=== PATIENT | female | born 1970 | race Caucasian/White ===

== ENCOUNTER → 2017-05-20 | Outpatient (CLI) | payer SELFPAY | END | disposition home or self-care (01) | LOC: LAB.O 11:30 | PROVIDERS: ATTEND Nurse Practitioner Family | DX: E03.9 Hypothyroidism, unspecified (principal) ==

== ENCOUNTER 2017-09-27 12:47 | Emergency (ER) | payer SELFPAY | END 2017-09-27 14:00 | disposition left against medical advice (07) | LOC: ER 12:47 | DX: Z53.21 Procedure and treatment not carried out due to patient leaving prior to being seen by health care provider (principal) ==

== ENCOUNTER 2018-05-21 15:35 | Emergency (ER) | payer SELFPAY ==
--- NOTE | 2018-05-21 16:15 | ED.PDOC ---
History of Present Illness - General Chief Complaint: GI Problem Stated Complaint: Abdominal cramping, blood in stool Time Seen by Provider: 05/21/18 16:12 Information Source: patient Exam Limitations: no limitations - History of Present Illness Initial Comments: Louise Patel 47 y/o female stated that she had blood tinged stool with abdominal cramps since yesterday and with diarrhea and mucus in stool. Stated abdominal cramps getting better.Had been diagnosed with celiac disease by in 2009 when she had same symptoms and had it again in 2013 and today.Stated she was prescribed antibiotics when she has this symptoms.Had EGD done but for peptic acid symptoms in the past no colonoscopy. Abdominal Pain Onset Location: suprapubic Pain Radiation: no radiation Quality: cramping, intermittent Timing/Duration: 7-24 hours, days - 2, gone now Worsening Factors: nothing Associated Symptoms: other - see hpi Review of Systems - Review of Systems Constitutional: States: no symptoms reported EENTM: States: no symptoms reported Respiratory: States: no symptoms reported Cardiology: States: no symptoms reported Gastrointestinal/Abdominal: States: see HPI Musculoskeletal: States: no symptoms reported Skin: States: no symptoms reported Neurological: States: no symptoms reported Past Medical History (General) - Patient Medical History Hx Seizures: No Hx Stroke: No Hx Dementia: No Hx Asthma: Yes Hx of COPD: No Hx Cardiac Disorders: Yes - PVC's Hx Congestive Heart Failure: No Hx Pacemaker: No Hx Hypertension: No Hx Thyroid Disease: Yes Hx Diabetes: No Hx Gastroesophageal Reflux: No Hx Renal Disease: No Hx Cancer: No Hx of HIV: No Hx Hepatitis C: No Hx MRSA: No Surgical History: Hysterectomy, other - hysterectomy, - Vaccination History Hx Tetanus, Diphtheria Vaccination: No Hx Influenza Vaccination: No Hx Pneumococcal Vaccination: No - Social History Hx Tobacco Use: No Hx Alcohol Use: No Hx Substance Use: No Hx Substance Use Treatment: No Hx Depression: No Hx Physical Abuse: No Hx Emotional Abuse: No - Activities of Daily Living Patient Lives Alone: No - Female History Patient is a Female of Child Bearing Age (10 -59 yrs old): No Patient : No Family Medical History - Family History Mother Family History: Unknown Living Status: Unknown Hx Family Asthma: Yes - brother Physical Exam - Physical Exam General Appearance: Alert, Comfortable, No apparent distress Eyes, Ears, Nose, Throat Exam: normal ENT inspection Neck: full range of motion, supple, normal inspection Respiratory: lungs clear, normal breath sounds Cardiovascular/Chest: normal peripheral pulses, regular rate, rhythm, no murmur Peripheral Pulses: No deficit Gastrointestinal/Abdominal: normal bowel sounds, non tender, soft Rectal Exam: normal rectal tone, heme negative stool, other - empty rectal vault Back Exam: no CVA tenderness, no vertebral tenderness Extremity: no pedal edema, no calf tenderness Neurologic: alert, oriented x 3 Lymphatic: no adenopathy Progress - Progress Progress: 05/21/18 16:47 Vital Signs - 8 hr 05/21/18 15:40 Temperature 97.8 F Pulse Rate [ 64 Right Radial] Respiratory 20 Rate Blood Pressure 106/81 [Right Arm] O2 Sat by Pulse 100 Oximetry - Results/Orders Results/Orders: 05/21/18 16:44 URINALYSIS Stat Laboratory Results - last 24 hr 05/21/18 05/21/18 05/21/18 16:56 16:56 17:34 WBC 6.7 RBC 4.12 L Hgb 12.5 Hct 37.2 MCV 90.3 MCH 30.3 MCHC 33.7 RDW 13.3 Plt Count 228 MPV 7.7 Absolute Neuts (auto) 4.70 Absolute Lymphs (auto) 1.50 Absolute Monos (auto) 0.30 Absolute Eos (auto) 0.10 Absolute Basos (auto) 0.00 Neutrophils % 70.0 Lymphocytes % 22.7 Monocytes % 4.9 Eosinophils % 1.8 Basophils % 0.6 Sodium 136 Potassium 4.0 Chloride 102 Carbon Dioxide 27 Anion Gap 11.0 L BUN 16 Creatinine 0.77 BUN/Creatinine Ratio 20.8 H Random Glucose 101 Serum Osmolality 273.3 L Calcium 8.7 Total Bilirubin < 0.2 L AST 19 ALT 21 Alkaline Phosphatase 42 Serum Total Protein 7.5 Albumin 4.2 Globulin 3.3 Albumin/Globulin Ratio 1.3 Stool Occult Blood Negative declined Urinalysis stated no dysuria,or hematuria Departure - Departure Clinical Impression: Abdominal cramps Diarrhea Qualifiers: Diarrhea type: unspecified type Qualified Code(s): R19.7 - Diarrhea, unspecified Time of Disposition: 18:10 Disposition: Discharge to Home or Self Care Condition: Fair Departure Forms: ED Discharge - Pt. Copy, Patient Portal Self Enrollment Diet: other - AVOID GREASY SPICY FOODS Referrals: Flavia Gaona, ELISEO [Primary Care Provider] - 1-2 Weeks Prescriptions: Cephalexin 1,000 mg PO BID 7 Days #30 cap metroNIDAZOLE [Flagyl] 500 mg PO Q12H 7 Days #14 tab Home Medications: Ambulatory Orders Albuterol Inhaler [Ventolin Hfa Inhaler] 0 gm INH PRN PRN 03/03/14 Levothyroxine Sodium [Synthroid] 50 mcg PO DAILY 03/03/14 Cephalexin 1,000 mg PO BID 7 Days #30 cap 05/21/18 metroNIDAZOLE [Flagyl] 500 mg PO Q12H 7 Days #14 tab 05/21/18 Additional Instructions: Follow up with primary Md for referral to [facility] Physical Education Teacher;Return to ER as needed
[2018-05-21 16:31] VITALS: O2SAT 100
[2018-05-21] MEDS ORDERED: metroNIDAZOLE 500 MG TAB PO ONE (18:08)
[2018-05-21] MEDS ORDERED: CEPHALEXIN MONOHYDRATE 500 MG CAP PO ONE (18:08)
[2018-05-21 18:44] VITALS: BP 103/79; TEMP 98
== END 2018-05-21 18:50 | disposition home or self-care (01) ==
LOC: ER 15:35
DX: R10.30 Lower abdominal pain, unspecified (principal); R19.7 Diarrhea, unspecified; K90.0 Celiac disease; J45.909 Unspecified asthma, uncomplicated; E07.9 Disorder of thyroid, unspecified

== ENCOUNTER → 2018-06-07 | Outpatient (CLI) | payer OTHER | LOC: YCFC.O 10:06 | PROVIDERS: ATTEND Nurse Practitioner Family | DX: E03.9 Hypothyroidism, unspecified (principal) ==

== ENCOUNTER 2018-07-20 00:02 | Emergency (ER) | payer SELFPAY ==
[2018-07-20] MEDS ORDERED: PROMETHAZINE HCL 25 MG TAB PO ONE (00:38)
[2018-07-20] MEDS ORDERED: IBUPROFEN 200 MG TAB PO ONE (00:38)
[2018-07-20] MEDS ORDERED: ALPRAZolam 0.25 MG TAB PO ONE (00:38)
[2018-07-20] MEDS ORDERED: predniSONE 20 MG TAB PO ONE (00:39)
[2018-07-20] MEDS ORDERED: SODIUM CHLORIDE 0.9% 1000ML 1,000 ML IVS ONE (01:18)
[2018-07-20 02:51] VITALS: O2SAT 97
--- NOTE | 2018-07-20 03:15 | ED.PDOC ---
History of Present Illness - General Chief Complaint: Headache Stated Complaint: migraine, fast heartbeat Time Seen by Provider: 07/20/18 00:32 Source: patient Exam Limitations: no limitations - History of Present Illness Initial Comments: the patient is a 47-year-old female presenting to the emergency room secondary to a headache that she has had for almost the entire day. The headache itself was not all that unusual she does get those this time of year. She is presenting because she is also having some mild sinus tachycardia that she is feeling. She does have hypothyroidism and takes Synthroid. She had this checked about a month and a half ago. No medication changes were made. No fevers or sore throat. No chest pain. No syncope or shortness of breath. No dizziness. She thinks she may be a little bit dehydrated. Timing/Duration: unsure Severity: moderate Improving Factors: nothing Worsening Factors: nothing Associated Symptoms: denies symptoms Allergies/Adverse Reactions: Allergies Ciprofloxacin [From Cipro] Allergy (Verified 05/21/18 16:13) Eggs or Egg-derived Products Allergy (Verified 05/21/18 16:13) Levofloxacin [From Levaquin] Allergy (Verified 05/21/18 16:13) Morphine Allergy (Verified 07/20/18 00:21) Paroxetine [From Paxil] Allergy (Verified 05/21/18 16:13) Sulfa Drugs Allergy (Verified 07/20/18 00:21) Home Medications: Ambulatory Orders Albuterol Inhaler [Ventolin Hfa Inhaler] 0 gm INH PRN PRN 03/03/14 Levothyroxine Sodium [Synthroid] 50 mcg PO DAILY 03/03/14 Review of Systems - Review of Systems Constitutional: States: no symptoms reported EENTM: States: no symptoms reported Respiratory: States: no symptoms reported Cardiology: States: no symptoms reported Gastrointestinal/Abdominal: States: no symptoms reported Genitourinary: States: no symptoms reported Musculoskeletal: States: no symptoms reported Skin: States: no symptoms reported Neurological: States: headache Endocrine: States: no symptoms reported All other Systems: No Change from Baseline Past Medical History (General) - Patient Medical History Hx Seizures: No Hx Stroke: No Hx Dementia: No Hx Asthma: Yes Hx of COPD: No Hx Cardiac Disorders: Yes - PVC's Hx Congestive Heart Failure: No Hx Pacemaker: No Hx Hypertension: No Hx Thyroid Disease: Yes Hx Diabetes: No Hx Gastroesophageal Reflux: No Hx Renal Disease: No Hx Cancer: No Hx of HIV: No Hx Hepatitis C: No Hx MRSA: No Surgical History: Hysterectomy - Vaccination History Hx Tetanus, Diphtheria Vaccination: No Hx Influenza Vaccination: No Hx Pneumococcal Vaccination: No - Social History Hx Tobacco Use: No Hx Alcohol Use: No Hx Substance Use: No Hx Substance Use Treatment: No Hx Depression: No Hx Physical Abuse: No Hx Emotional Abuse: No - Female History Patient : No Family Medical History - Family History Mother Family History: Unknown Living Status: Unknown Hx Family Asthma: Yes - brother Physical Exam - Physical Exam General Appearance: Alert, No apparent distress Eye Exam: bilateral normal Ears, Nose, Throat: hearing grossly normal, normal ENT inspection, normal pharynx Neck: non-tender, full range of motion, supple Respiratory: lungs clear, normal breath sounds, no respiratory distress, no accessory muscle use Cardiovascular/Chest: normal peripheral pulses, no edema, tachycardia - inus tachycardia Peripheral Pulses: radial,right: 2+, radial,left: 2+ Gastrointestinal/Abdominal: non tender, soft Rectal Exam: deferred Back Exam: normal inspection, no CVA tenderness, no vertebral tenderness Extremity: normal range of motion, non-tender, normal inspection, no pedal edema , normal capillary refill 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, alert, normal mood/affect, oriented x 3 Skin Exam: normal color Comments: Vital Signs - 24 hr 07/20/18 07/20/18 07/20/18 00:10 00:55 00:56 Temperature 98.6 F Pulse Rate [ 114 H 128 H 136 H monitor] Respiratory 16 Rate Blood Pressure 118/73 110/71 145/90 [Left Arm] O2 Sat by Pulse 99 Oximetry 07/20/18 07/20/18 07/20/18 01:02 01:58 02:25 Temperature Pulse Rate [ 125 H 112 H 106 H monitor] Respiratory 16 20 16 Rate Blood Pressure 91/53 103/71 92/66 [Left Arm] O2 Sat by Pulse 99 98 99 Oximetry 07/20/18 02:50 Temperature Pulse Rate [ 116 H monitor] Respiratory 16 Rate Blood Pressure 107/61 [Left Arm] O2 Sat by Pulse 97 Oximetry Progress - Progress Progress: 07/20/18 03:16 the patient is a 47-year-old female presenting to the emergency room secondary to a recurrent persistent headache which is apparently not unusual for her this time of year. The patient was given medications which did help with this. Additionally she does have some mild sinus tachycardia. She does also have some probable hyperthyroidism, based on her low TSH level. I'm going to recommend that she reduce her Synthroid for the next month and have her thyroid function tests rechecked. She needs to keep herself well hydrated. ER warnings were given. Follow up with primary care doctor later this week. - Results/Orders Results/Orders: Laboratory Tests 07/20/18 07/20/18 07/20/18 01:18 01:18 01:18 WBC 6.7 RBC 4.30 Hgb 13.0 Hct 38.7 MCV 89.9 MCH 30.2 MCHC 33.6 RDW 12.3 Plt Count 203 MPV 8.8 Absolute Neuts (auto) 4.80 Absolute Lymphs (auto) 1.40 Absolute Monos (auto) 0.40 Absolute Eos (auto) 0.10 Absolute Basos (auto) 0.00 Neutrophils % 71.5 Lymphocytes % 20.9 Monocytes % 6.0 Eosinophils % 1.0 Basophils % 0.6 D-Dimer, Quantitative < 0.19 Sodium 138 Potassium 4.0 Chloride 105 Carbon Dioxide 26 Anion Gap 11.0 L BUN 16 Creatinine 0.80 BUN/Creatinine Ratio 20.0 Random Glucose 126 H Serum Osmolality 278.4 Calcium 9.5 Magnesium 1.8 Total Bilirubin 0.6 AST 23 ALT 23 Alkaline Phosphatase 44 Creatine Kinase 52 CK-MB (CK-2) 1.5 CK-MB (CK-2) % Not Reportable Troponin I < 0.02 B-Natriuretic Peptide 27.5 Serum Total Protein 7.9 Albumin 4.6 Globulin 3.3 Albumin/Globulin Ratio 1.4 TSH 0.07 L Urine Color Urine Appearance Urine pH Ur Specific [place] Urine Protein Urine Glucose (UA) Urine Ketones Urine Blood Urine Nitrite Urine Bilirubin Urine Urobilinogen Ur Leukocyte Esterase Urine RBC Urine WBC Ur Epithelial Cells Urine Bacteria Urine HCG, Qual 07/20/18 07/20/18 01:18 01:26 WBC RBC Hgb Hct MCV MCH MCHC RDW Plt Count MPV Absolute Neuts (auto) Absolute Lymphs (auto) Absolute Monos (auto) Absolute Eos (auto) Absolute Basos (auto) Neutrophils % Lymphocytes % Monocytes % Eosinophils % Basophils % D-Dimer, Quantitative Sodium Potassium Chloride Carbon Dioxide Anion Gap BUN Creatinine BUN/Creatinine Ratio Random Glucose Serum Osmolality Calcium Magnesium Total Bilirubin AST ALT Alkaline Phosphatase Creatine Kinase CK-MB (CK-2) CK-MB (CK-2) % Troponin I B-Natriuretic Peptide Serum Total Protein Albumin Globulin Albumin/Globulin Ratio TSH Urine Color Yellow Urine Appearance Clear Urine pH 5.5 Ur Specific [place] 1.010 Urine Protein Negative Urine Glucose (UA) Negative Urine Ketones Negative Urine Blood Negative Urine Nitrite Negative Urine Bilirubin Negative Urine Urobilinogen 0.2 Ur Leukocyte Esterase Negative Urine RBC 0 Urine WBC 0 Ur Epithelial Cells 0 Urine Bacteria 0 Urine HCG, Qual Negative Departure - Departure Clinical Impression: Sinus tachycardia, Hyperthyroidism Migraine Qualifiers: Migraine type: unspecified Status migrainosus presence: with status migrainosus Intractability: not intractable Qualified Code(s): G43.901 - Migraine, unspecified, not intractable, with status migrainosus Disposition: Discharge to Home or Self Care Condition: Fair Departure Forms: ED Discharge - Pt. Copy, Patient Portal Self Enrollment Diet: regular diet Activity: increase activity as tolerated Referrals: Flavia Gaona NP [Primary Care Provider] - 1-5 Days Home Medications: Ambulatory Orders Albuterol Inhaler [Ventolin Hfa Inhaler] 0 gm INH PRN PRN 03/03/14 Levothyroxine Sodium [Synthroid] 50 mcg PO DAILY 03/03/14 Additional Instructions: the patient is a 47-year-old female presenting to the emergency room secondary to a recurrent persistent headache which is apparently not unusual for her this time of year. The patient was given medications which did help with this. Additionally she does have some mild sinus tachycardia. She does also have some probable hyperthyroidism, based on her low TSH level. I'm going to recommend that she reduce her Synthroid for the next month and have her thyroid function tests rechecked. She needs to keep herself well hydrated. ER warnings were given. Follow up with primary care doctor later this week.
[2018-07-20 03:32] VITALS: BP 112/63; TEMP 98.1
== END 2018-07-20 03:32 | disposition home or self-care (01) ==
LOC: ER 00:02
DX: G43.901 Migraine, unspecified, not intractable, with status migrainosus (principal); R00.0 Tachycardia, unspecified; E05.90 Thyrotoxicosis, unspecified without thyrotoxic crisis or storm; J45.909 Unspecified asthma, uncomplicated; Z79.899 Other long term (current) drug therapy; Z88.2 Allergy status to sulfonamides; Z88.5 Allergy status to narcotic agent; Z88.1 Allergy status to other antibiotic agents
CPT/HCPCS: 80053; 81001; 81025; 82550; 82553; 83735; 83880; 84443; 84484; 85025; 85379; 87804; J7030; J7512; Q0169

== ENCOUNTER → 2018-10-07 | Outpatient (CLI) | payer OTHER | LOC: YCFC.O 11:40 | PROVIDERS: ATTEND Nurse Practitioner Family | DX: E03.9 Hypothyroidism, unspecified (principal) ==

== ENCOUNTER → 2020-07-09 | Outpatient (CLI) | payer SELFPAY | LOC: LAB 08:51 | PROVIDERS: ATTEND Family Medicine | DX: E03.9 Hypothyroidism, unspecified (principal); R19.4 Change in bowel habit; Z13.220 Encounter for screening for lipoid disorders ==

== ENCOUNTER 2020-09-12 21:33 | Emergency (ER) | payer SELFPAY ==
[2020-09-12] MEDS ORDERED: SODIUM CHLORIDE 0.9% 1000ML 1,000 ML IVS ONE (22:02)
--- NOTE | 2020-09-12 22:05 | ED.PDOC ---
History of Present Illness - General Chief Complaint: GI Problem Stated Complaint: migraine, rectal bleed Time Seen by Provider: 09/12/20 21:54 - History of Present Illness Initial Comments: 50-year-old female positive past medical history presents to ED complaining of acute onset of abdominal pain and diarrhea that began today. She states majority the pain is currently resolved as well as the diarrhea however she has had small amounts of bright red blood streaking in the toilet since. She denies any associated fever/chills, nausea/vomiting, chest pain, shortness of breath, dysuria, hematuria. Patient has positive history of similar symptoms. She states that after she gets a migraine she has "IBS flares". She states her prior migraine is resolved. She believes her anxiety has exacerbated and that is what is her her heart is tachycardic and she is concerned about the blood in her stool. Denies any alleviating/aggravating factors. She has no other signs, symptoms, complaints. Review of Systems - Review of Systems Constitutional: Denies: chills, fever EENTM: Denies: nose congestion, throat pain Respiratory: Denies: cough, short of breath Cardiology: States: palpitations. Denies: chest pain Gastrointestinal/Abdominal: States: abdominal pain, diarrhea, other - blood in stool. Denies: constipation, nausea, vomiting Genitourinary: Denies: dysuria, frequency Musculoskeletal: Denies: muscle pain, neck pain Skin: Denies: change in color, rash Neurological: States: other - no dizziness. Denies: headache Hematologic/Lymphatic: States: easy bruising Past Medical History (General) - Patient Medical History Hx Seizures: No Hx Stroke: No Hx Dementia: No Hx Asthma: Yes Hx of COPD: No Hx Cardiac Disorders: Yes - PVC's Hx Congestive Heart Failure: No Hx Pacemaker: No Hx Hypertension: No Hx Thyroid Disease: Yes Hx Diabetes: No Hx Gastroesophageal Reflux: No Hx Renal Disease: No Hx Cancer: Yes - cervical Hx of HIV: No Hx Hepatitis C: No Hx MRSA: No Surgical History: Hysterectomy - Vaccination History Hx Tetanus, Diphtheria Vaccination: No Hx Influenza Vaccination: No Hx Pneumococcal Vaccination: No - Social History Hx Tobacco Use: No Hx Alcohol Use: No Hx Substance Use: No Hx Substance Use Treatment: No Hx Depression: No Hx Physical Abuse: No Hx Emotional Abuse: No - Female History Patient : No Family Medical History - Family History Mother Family History: Unknown Living Status: Unknown Hx Family Asthma: Yes - brother Physical Exam - Physical Exam General Appearance: Alert, Anxious, Comfortable, No apparent distress Eyes, Ears, Nose, Throat Exam: normal ENT inspection Neck: full range of motion, supple Respiratory: lungs clear, normal breath sounds, no respiratory distress, no accessory muscle use Cardiovascular/Chest: regular rate, rhythm, no edema, no JVD, no murmur Gastrointestinal/Abdominal: normal bowel sounds, soft, no organomegaly, no pulsatile mass, other - mild LLQ abd TTP, no rebound, no guarding, no peritoneal signs, no CVA TTP bilaterally Rectal Exam: deferred Back Exam: no CVA tenderness, other - Full ROM without pain Extremity: normal inspection, no pedal edema Neurologic: alert, oriented x 3 Skin Exam: normal color, warm/dry, other - no rash, no pallor Special Observations: Laughing, Smiling, Other - anxious and pacing in room Progress - Progress Progress: Damon Lenz DO Emergency Medicine Physician [id number] Appropriate PPE of surgical mask, gown, gloves, and eye protection (if encounter >5 minutes) utilized with every patient encounter; in accordance with hospital policy. Presents for likely diverticulosis. Low clinical concern for hemorrhagic lower GI bleed. I will perform imaging, labs, EKG, provide appropriate pharmacotherapy, and continue to monitor/reassess. Dispo will depend on imaging, EKG, lab results, and overall course in ED; however, discharge home is expected with f/u, education, and possible rx. 23:37 Rechecked pt. NAD, VSS, resting comfortably in bed and is feeling better. I have discussed radiology results, lab results, EKG, my clinical impression, and diagnosis. I have also discussed plan for discharge home with f/u, educa tion, and prescription medications. Pt does not have an established GI specialist; I will provide her with referrals. ED return precautions provided. Pt voices understanding, agrees with plan, and all questions answered. - Results/Orders Results/Orders: EKG @2204: read @2207. Sinus Tachycardia @ 105, nl axis, intervals wnl, no ST elevations/depressions. No STEMI. 09/12/20 22:00 EKG STAT 09/12/20 22:01 IV Care:Saline Lock per Protoc QSHIFT IV:Start .ONCE 09/12/20 22:02 Hold Metformin x 48Hrs [id number] Laboratory Results - last 24 hr 09/12/20 09/12/20 22:27 22:27 WBC 7.0 RBC 4.57 Hgb 13.3 Hct 39.8 MCV 87.1 MCH 29.1 MCHC 33.5 RDW 13.1 Plt Count 233 MPV 7.7 Absolute Neuts (auto) 4.20 Absolute Lymphs (auto) 2.30 Absolute Monos (auto) 0.30 Absolute Eos (auto) 0.10 Absolute Basos (auto) 0.00 Neutrophils % 59.9 Lymphocytes % 33.5 Monocytes % 4.4 Eosinophils % 1.8 Basophils % 0.4 Sodium 137 Potassium 3.7 Chloride 100 L Carbon Dioxide 27 Anion Gap 13.7 BUN 14 Creatinine 0.73 BUN/Creatinine Ratio 19.2 Random Glucose 115 H Serum Osmolality 275.2 Calcium 9.1 Hemoglobin stable and improved from previous labs. EXAM DESCRIPTION: Abdomen/Pelvis w/Contrast 09/12/2020 11:26 PM COMPLAINT MANAGER CLINICAL HISTORY: 50 years, Female, diverticulosis COMPARISON: 01/14/2015 PROCEDURE: Contrast-enhanced images of the abdomen and pelvis were performed utilizing 2 mm slice thickness at 2 mm interval reconstruction from the lung bases to the ischial tuberosities after the administration of IV contrast. No dosing amount was providing for interpretation. In addition multiplanar reformats in the bria nal and sagittal plane were obtained and reviewed. An individualized dose optimization technique, Automated Exposure Control, was utilized for the performed procedure. FINDINGS: The lung bases demonstrate to be clear. The liver, pancreas, spleen and adrenal glands demonstrate to be unremarkable, no focal lesions are noted. The gallbladder demonstrate the presence of a rim high density material within the fundus corresponding to cholelithiasis. No significant surrounding pericholecystic fluid and/or infiltrate changes. The kidneys demonstrate normal uptake of contrast media. No hydronephrosis and/or stones were identified. Grossly the unopacified stomach, small bowel and large bowel demonstrate to be within normal limits. Fecal residue and underdistention within the large bowel limits the evaluation. There is no evidence for small bowel dilatation and/or free air. The presence of suboptimal distention of the left site colon limits the evaluation. Questionable mucosal thickening/enhan cement could be suggested within the mid sigmoid colon/descending colon area for which the possibility of colitis cannot be totally excluded. There is no evidence for diverticulosis. The appendix is normal. The urinary bladder demonstrate to be unremarkable. The uterus is absent. The aorta demonstrate to be normal. There is no retroperitoneal lymphadenopathy. There is no evidence for ascites and/or significant abnormal fluid collections. The rest of the soft tissue and bony structures are within normal limits. IMPRESSION: CHOLELITHIASIS. STATUS POST HYSTERECTOMY. SUBOPTIMAL DISTENTION OF THE LEFT SITE COLON QUESTIONABLE MUCOSAL ENHANCEMENT FOR WHICH COLITIS AND/OR RELATED TO UNDERDISTENTION COULD BE OF CONSIDERATION. Electronically signed by: Rod Stein MD 09/12/2020 11:30 PM COMPLAINT MANAGER Vital Signs - 24 hr 09/12/20 21:39 Temperature 98.8 F Pulse Rate [ 127 H monitor] Respiratory 20 Rate Blood Pressure 112/61 [Left Arm] O2 Sat by Pulse 97 Oximetry Departure - Departure Clinical Impression: History of colitis, Bright red blood per rectum, History of anxiety, Dehydration Diarrhea Qualifiers: Diarrhea type: unspecified type Qualified Code(s): R19.7 - Diarrhea, un specified Time of Disposition: 23:34 Disposition: Discharge to Home or Self Care Condition: Excellent Departure Forms: ED Discharge - Pt. Copy, Patient Portal Self Enrollment Instructions: Bloody Stools, Adult (DC), Irritable Bowel Syndrome (DC), Dehydration, Adult (DC) Diet: resume usual diet, other - high fiber diet, gluten free Activity: increase activity as tolerated Referrals: Oly Greer MD [Primary Care Provider] - 1 Week GRAYSON HAGAN MD [Physicians] - 1-2 Weeks GAIL YOU [Physicians] - 1-2 Weeks Prescriptions: metroNIDAZOLE [Flagyl] 500 mg PO Q8H 7 Days #21 tab Psyllium [Metamucil] 28.3 % PO DAILY #1 bottle Home Medications: Ambulatory Orders Albuterol Inhaler [Ventolin Hfa Inhaler] 0 gm INH PRN PRN 03/03/14 Levothyroxine Sodium [Synthroid] 25 mcg PO DAILY 03/03/14 Psyllium [Metamucil] 28.3 % PO DAILY #1 bottle 09/12/20 metroNIDAZOLE [Flagyl] 500 mg PO Q8H 7 Days #21 tab 09/12/20
--- NOTE | 2020-09-12 23:31 | CT ---
EXAM DESCRIPTION: Abdomen/Pelvis w/Contrast 09/12/2020 11:26 PM FILM AND VIDEO GRAPHICS DESIGNER CLINICAL HISTORY: 50 years, Female, diverticulosis COMPARISON: 01/14/2015 PROCEDURE: Contrast-enhanced images of the abdomen and pelvis were performed utilizing 2 mm slice thickness at 2 mm interval reconstruction from the lung bases to the ischial tuberosities after the administration of IV contrast. No dosing amount was providing for interpretation. In addition multiplanar reformats in the coronal and sagittal plane were obtained and reviewed. An individualized dose optimization technique, Automated Exposure Control, was utilized for the performed procedure. FINDINGS: The lung bases demonstrate to be clear. The liver, pancreas, spleen and adrenal glands demonstrate to be unremarkable, no focal lesions are noted. The gallbladder demonstrate the presence of a rim high density material within the fundus corresponding to cholelithiasis. No significant surrounding pericholecystic fluid and/or infiltrate changes. The kidneys demonstrate normal uptake of contrast media. No hydronephrosis and/or stones were identified. Grossly the unopacified stomach, small bowel and large bowel demonstrate to be within normal limits. Fecal residue and underdistention within the large bowel limits the evaluation. There is no evidence for small bowel dilatation and/or free air. The presence of suboptimal distention of the left site colon limits the evaluation. Questionable mucosal thickening/enhancement could be suggested within the mid sigmoid colon/descending colon area for which the possibility of colitis cannot be totally excluded. There is no evidence for diverticulosis. The appendix is normal. The urinary bladder demonstrate to be unremarkable. The uterus is absent. The aorta demonstrate to be normal. There is no retroperitoneal lymphadenopathy. There is no evidence for ascites and/or significant abnormal fluid collections. The rest of the soft tissue and bony structures are within normal limits. IMPRESSION: CHOLELITHIASIS. STATUS POST HYSTERECTOMY. SUBOPTIMAL DISTENTION OF THE LEFT SITE COLON QUESTIONABLE MUCOSAL ENHANCEMENT FOR WHICH COLITIS AND/OR RELATED TO UNDERDISTENTION COULD BE OF CONSIDERATION. Electronically signed by: Rod Stein MD 09/12/2020 11:30 PM FILM AND VIDEO GRAPHICS DESIGNER
[2020-09-12 23:55] VITALS: BP 126/76; O2SAT 99
[2020-09-12 23:57] VITALS: TEMP 98.5
== END 2020-09-13 00:04 | disposition home or self-care (01) ==
LOC: ER 21:33
DX: K62.5 Hemorrhage of anus and rectum (principal); R19.7 Diarrhea, unspecified; E86.0 Dehydration; F41.9 Anxiety disorder, unspecified; R00.0 Tachycardia, unspecified; J45.909 Unspecified asthma, uncomplicated; E07.9 Disorder of thyroid, unspecified; Z87.19 Personal history of other diseases of the digestive system; Z85.41 Personal history of malignant neoplasm of cervix uteri
CPT/HCPCS: 36415; 74177; 80048; 85025; 93005; J7030